=== PATIENT | female | born 1965 | race Caucasian/White ===

== ENCOUNTER → 2020-04-29 | Outpatient (CLI) | payer MEDICARE ==
--- NOTE | 2020-04-29 14:42 | Diagnostic Imaging Report ---
INDICATION: Previous neck surgery. Chronic neck pain. COMPARISON: None. FINDINGS: Frontal, lateral, and open-mouth radiographic views of the cervical spine were obtained. Patient is status post previous laminectomy with 360-degree fusion of C6 and C7. Hardware appears appropriately positioned. No unexpected radiopaque foreign bodies are seen. Static alignment is maintained. There is no significant candis or retrolisthesis. There is no evidence of jumped facets. Open-mouth view demonstrates normal C1-C2 alignment. Vertebral body heights are maintained. There is moderate multilevel degenerative change. Included portions of the lung apices are clear. IMPRESSION: 1. Postsurgical changes of previous laminectomy and 360-degree fusion at C6 and C7. No evidence of hardware fracture or failure. 2. No acute fracture or dislocation of the cervical spine. Dictated by: Dictated on workstation # [id number]
== END ==
LOC: RAD FS 13:23
PROVIDERS: ATTEND Emergency Medicine
DX: M50.30 Other cervical disc degeneration, unspecified cervical region (principal); Z98.1 Arthrodesis status
CPT/HCPCS: 72040

== ENCOUNTER → 2020-04-30 | Outpatient (CLI) | payer MEDICARE ==
--- NOTE | 2020-04-30 15:56 | Diagnostic Imaging Report ---
INDICATION: Postmenopausal. COMPARISON: There are no prior studies for comparison. FINDINGS: The bone mineral density of the hips and spine was measured. The T-score for the spine is -2.0. This does indicate osteopenia. However, it should be noted that T-score for L2 is -2.7 which falls within the range of osteoporosis. The total T-score for the left hip is -1.0 and for the right hip -0.9. These values are at the lowest end of normal. The T-score for the left femoral neck is -1.4 and for the right femoral neck -1.1. These T-scores indicate mild osteopenia. AP Spine L1-L4: [BMD (g/cm2): 0.961] [T-Score: -2.0] [Z-Score: -1.1] [BMD Previous: na] [BMD % Change: na] LT Hip Neck: [BMD (g/cm2): 0.837] [T-Score: -1.4] [Z-Score: -0.4] LT Hip Total: [BMD (g/cm2):0.882] [T-Score:-1.0] [Z-Score: -0.3] [BMD Previous: na] [BMD % Change: na] RT Hip Neck: [BMD (g/cm2):0.889] [T-Score:-1.1] [Z-Score:0.0] RT Hip Total: [BMD (g/cm2):0.889] [T-score:-0.9] [Z-Score:-0.2] [BMD Previous:na] [BMD % Change:na] *Indicates significant change from prior examination based on 95% confidence level. World Health Organization criteria for BMD interpretation classify patients as Normal (T-score at or above -1.0), Osteopenic (T-score between -1.0 and -2.5) or Osteoporotic (T-score at or below -2.5). LIMITATIONS AND MODIFICATION: None. FRACTURE RISK (FRAX SCORE): The ten year probability of (%): Major Osteoporotic Fracture: [6.3] Hip Fracture: [0.9] IMPRESSION: 1. The bone mineral density of the spine and the femoral necks does fall within the range of osteopenia. The T-score for L2 however does indicate osteoporosis. 2. The bone mineral density of the hips is at the lowest end of normal. 3. See below National Osteoporosis Foundation guidelines on when to potentially initiate pharmacologic therapy. Based on the National Osteoporosis Foundation Guidelines, pharmacologic treatment should be initiated in any of the following, unless clinical conditions suggest otherwise: * Any patient with prior fragility fracture of the hip or vertebrae. A spine fracture indicates 5X risk for subsequent spine fracture and 2X risk for subsequent hip fracture. * Osteoporosis (T-score <-2.5). * Postmenopausal women and men age 50 and older with low bone mass/osteopenia (T-score between -1.0 and -2.5) by DXA and 10-year major osteoporotic fracture greater than 20% or a 10-year probability of hip fracture greater than 3%. These fracture risks are supplied above in the FRAX score, if applicable. * Clinician judgement and/or patient preferences may indicate treatment for people with 10-year fracture probabilities above or below these levels. Dictated by: Dictated on workstation # [id number]
== END ==
LOC: RAD 14:00
PROVIDERS: ATTEND Emergency Medicine
DX: M81.0 Age-related osteoporosis without current pathological fracture (principal)
CPT/HCPCS: 77080